=== PATIENT | male | born 1960 | race Caucasian/White ===

== ENCOUNTER 2019-01-26 16:53 | Emergency (ER) | payer OTHER ==
[~2019-01-26] VITALS: Ht 172.7 cm; Wt 64.4 kg
--- NOTE | 2019-01-26 17:30 | NUR ---
[id number] FROM HOME C/O R SIDE INGUINAL AREA PAIN. HX OF INGUINAL HERNIA. PT AAOX4, VSS. DENIES CP, SOB, DIZZINESS, N/V/D AT THIS TIME. AWAITING EVAL BY RAMANA/PA. WILL CONT TO MONITOR.
[2019-01-26] MEDS ORDERED: MORPHINE SULFATE INJ 2 MG/ML DISP.SYRIN IV ONE (18:00)
[2019-01-26] MEDS ORDERED: ONDANSETRON HCL/PF 4 MG/2 ML VIAL IVP ONE (18:00)
[2019-01-26] MEDS ORDERED: IV NS 0.9% 1,000 ML BAG IV ONE (18:00)
[2019-01-26] MEDS ORDERED: MORPHINE SULFATE INJ 4 MG/ML DISP.SYRIN ONE (18:08)
[2019-01-26] MEDS ORDERED: ONDANSETRON HCL/PF 4 MG/2 ML VIAL ONE (18:08)
[2019-01-26 18:10] LABS: BASOPHILS # (AUTO) 0.1 /CMM (0.0-0.2); BASOPHILS % (AUTO) 0.4 % (0.0-2.0); EOSINOPHILS % (AUTO) 0.1 % (0.0-6.0); HEMATOCRIT 39 % (39-51); HEMOGLOBIN 13.3 g/dL (13.5-17.5); LYMPHOCYTES # (AUTO) 1.8 /CMM (0.8-4.8); LYMPHOCYTES % (AUTO) 15.8 % (20.0-44.0); MEAN CORPUSCULAR HGB CONC 34 g/dl (31.0-36.0); MEAN CORPUSCULAR VOLUME 87 fL (80-96); MONOCYTES % (AUTO) 9.1 % (2.0-12.0); NEUTROPHILS # (AUTO) 8.4 /CMM (1.8-8.9); NEUTROPHILS % (AUTO) 74.6 % (43.0-81.0); PLATELET COUNT (AUTO) 341 /CMM (150-450); RED BLOOD CELL COUNT(AUTO) 4.47 MIL/uL (4.5-6.0); WHITE BLOOD COUNT (AUTO) 11.3 K/uL (4.3-11.0)
--- NOTE | 2019-01-26 18:18 | NUR ---
MEDICATED FOR PAIN PER FREDERICK ARMSTRONG'S ORDER. PT JYOTI WELL.
[2019-01-26 18:27] LABS: CALCIUM, SERUM 9.4 mg/dL (8.5-10.1); CREATININE 0.9 mg/dL (0.6-1.3); POTASSIUM 3.4 mmol/L (3.5-5.1)
[2019-01-26] MEDS ORDERED: IOHEXOL-300 100 ML VIAL IV ONE (18:31)
[2019-01-26 18:32] LABS: ALBUMIN 4.1 g/dL (3.4-5.0); BILIRUBIN,DIRECT 0.1 mg/dL (0.0-0.2); BILIRUBIN,TOTAL 0.3 mg/dL (0.2-1.0); TOTAL PROTEIN, SERUM 7.1 g/dL (6.4-8.2)
--- NOTE | 2019-01-26 18:43 | NUR ---
PT TO CT VIA [facility].
--- NOTE | 2019-01-26 20:08 | NUR ---
PT SITTING UP, VSS. RR EVEN & UNLABORED. RT GROIN PAIN 5/10 & JYOTI WELL. DENIES ANY OTHER DISCOMFORT. WILL CONT TO MONITOR.
--- NOTE | 2019-01-26 21:10 | NUR ---
Patient discharged to home in stable condition. Written and verbal after care instructions given. Patient verbalizes understanding of instruction. IV removed. Catheter intact and site benign. Pressure and 4x4 applied to site. No bleeding noted.
[2019-01-26 21:11] VITALS: BP 140/78
== END 2019-01-26 21:12 | disposition home or self-care (01) ==
LOC: ER 16:57
DX: K40.90 Unilateral inguinal hernia, without obstruction or gangrene, not specified as recurrent (principal); K58.9 Irritable bowel syndrome, unspecified; Z98.890 Other specified postprocedural states
CPT/HCPCS: 36415; 74177; 80048; 80076; 85025; 87081; 96374; 96375; 99284; J2270; J2405; J7030; Q9967

== ENCOUNTER 2019-01-27 05:03 | Emergency (ER) | payer OTHER ==
[~2019-01-27] VITALS: Ht 182.9 cm; Wt 65.8 kg
--- NOTE | 2019-01-27 05:30 | NUR ---
[id number] FROM HOME C/C R SIDED GROIN HERNIA "POPPED OUT AND HURTS". SC PT HE WAS JUST DISCHARGED FROM [facility] ER 5 HOURS AGO FOR THE SAME COMPLAINT/ SYMPTOM.
--- NOTE | 2019-01-27 06:09 | NUR ---
SEEN BY DR BAKER . REDUCTION OF THE R HERNIA WAS DONE BY AT THE BED SIDE. TOLERATED WELL BY THE PT. ICA PACK APPLIED ON THE AREA . WILL CONT TO MONITOR
--- NOTE | 2019-01-27 08:19 | NUR ---
Patient discharged to home in stable condition. Written and verbal after care instructions given. Patient verbalizes understanding of instruction.
[2019-01-27 08:20] VITALS: BP 139/65
== END 2019-01-27 08:21 | disposition home or self-care (01) ==
LOC: ER 05:07
DX: K40.90 Unilateral inguinal hernia, without obstruction or gangrene, not specified as recurrent (principal); K58.9 Irritable bowel syndrome, unspecified